=== PATIENT | male | born 1955 | race Caucasian/White ===

== ENCOUNTER → 2017-07-12 | Outpatient (CLI) | payer BC ==
--- NOTE | 2017-07-12 12:03 | EST ---
EXERCISE STRESS DATE OF SERVICE: 07/12/2017 AGE: 62 SEX: Male HT: 68 WT: 208 PROTOCOL: Kwame STAGE: II DURATION OF EXERCISE: 6 minutes HEART RATE REST: 109 BLOOD PRESSURE REST: 130/97 MAXIMUM HEART RATE ACHIEVED: 156 MAXIMUM BLOOD PRESSURE: 205/96 85% MPHR: 136 100% MPHR: 160 METS: 7.3 INDICATIONS: Chest pain. CLINICAL INFORMATION: STRESS DATA: Pretesting physical examination showed a heart rate of 109, pressure is 130/97 mmHg. Baseline EKG showed sinus mechanism. The patient exercised on the treadmill according to Kwame protocol for a total of 6 minutes and achieved 7.3 METs. Max heart rate was 156, which is about 97% of maximum predicted heart rate. Maximum blood pressure was 205/96 mmHg. Clinically the patient did not have any symptoms of chest pain or discomfort and the EKG did not show any significant ST or T-wave abnormalities consistent with ischemia. CONCLUSION: 1. Good exercise capacity. 2. Normal EKG in response to exercise. 3. Normal stress test for the patient. MMODL / IJN: [id number] /
== END | disposition home or self-care (01) ==
LOC: RADNMMAIN 10:20
PROVIDERS: ATTEND Family Medicine
DX: I10 Essential (primary) hypertension (principal)
CPT/HCPCS: 93017

== ENCOUNTER → 2023-04-23 | Outpatient (CLI) | payer BC ==
--- NOTE | 2023-04-24 11:15 | MR ---
EXAMINATION TYPE: MR cervical spine wo/w con DATE OF EXAM: 04/23/2023 6:19 PM CLINICAL INDICATION:Male, 68 years old with history of M62.522; PHH, Multifocal weakness both C5/6 an d C7/T1, COMPARISON: None. TECHNIQUE: Multi planar, multi sequence imaging was performed utilizing: T1-weighted, T2-weighted, an d turbo inversion recovery imaging of the cervical spine. IV Contrast: 8 cc Gadavist (none if empty) FINDINGS: Alignment: The cervical vertebral bodies have preserved heights. Alignment is within normal limits gi chang patient positioning. Bones: Scattered Modic endplate changes with osteophytes and disc space narrowing. Multilevel degener ative disc disease is noted and most pronounced at the C5-C7 vertebral levels. No abnormal postcontra st enhancement. Cord: The spinal cord is unremarkable with regards to their signal intensity and morphology. No abnor mal postcontrast enhancement. Discs: Multilevel disc desiccation is present. C2-C3: No significant disc pathology. The spinal canal is patent. No neural foraminal stenosis. C3-C4: No significant disc pathology. The spinal canal is patent. Bilateral facet and uncovertebral joint arthropathy are present with mild bilateral neural foraminal stenosis. C4-C5: A disc osteophyte complex is present which minimally narrows the ventral subarachnoid space. Bilateral facet and uncovertebral joint arthropathy are present with mild to moderate bilateral neur al foraminal stenosis. C5-C6: No significant disc pathology. The spinal canal is patent. Bilateral facet and uncovertebral joint arthropathy are present with moderate to severe left and moderate right neural foraminal stenos is. C6-C7: A disc osteophyte complex is present which minimally narrows the ventral subarachnoid space. Bilateral facet and uncovertebral joint arthropathy are present with mild bilateral neural foraminal stenosis. C7-T1: No significant disc pathology. The spinal canal is patent. Bilateral facet and uncovertebral joint arthropathy are present with mild bilateral neural foraminal stenosis. Other: Mild paranasal sinus disease. IMPRESSION: 1. No evidence for disc herniation or significant spinal canal stenosis. No abnormal postcontrast enh ancement. 2. Mild disc degeneration with associated osteoarthritic changes with neural foraminal stenosis worse at C5-C6.
--- NOTE | 2023-05-01 18:20 | MR ---
EXAMINATION TYPE: MR brachial plexus LT wo con DATE OF EXAM: 04/23/2023 COMPARISON: None HISTORY: Evaluate for mass, weakness in both arms, inflammatory Standard multiplanar, multisequence MRI departmental protocol Multiplanar, multisequence images of the left brachial plexus were acquired without contrast. FINDINGS: Spinal cord: Visualized spinal cord is normal in caliber and signal intensity Brachial plexus: Roots: Normal Trunks: Normal Cords: Normal Branches: Normal Muscles/tendons: Small amount of nonspecific edema within the supraspinatus, infraspinatus, and subsc apularis muscle bellies. Bones: Thoracic outlet and cervicothoracic junction are normal. No cervical rib. The C7 transverse p rocesses are normal. Bone marrow signal is normal. Vasculature: No vascular anatomic variant or abnormality. Other: Normal IMPRESSION: 1. Normal brachial plexus. No osseous or vascular abnormality at the thoracic outlet or cervicothorac ic junction. 2. Nonspecific intramuscular edema in the rotator cuff musculature. Correlate with symptoms and physi pili exam. Consider MRI of the left shoulder.
== END | disposition home or self-care (01) ==
LOC: RADMRIMAIN 16:37
PROVIDERS: ATTEND Psychiatry & Neurology Neurology
DX: M62.522 Muscle wasting and atrophy, not elsewhere classified, left upper arm (principal); M50.322 Other cervical disc degeneration at C5-C6 level; M47.812 Spondylosis without myelopathy or radiculopathy, cervical region; M99.71 Connective tissue and disc stenosis of intervertebral foramina of cervical region; R60.0 Localized edema
CPT/HCPCS: 71550; 72156; A9585

== ENCOUNTER → 2023-08-27 | Outpatient (CLI) | payer BC ==
--- NOTE | 2023-09-02 09:32 | MR ---
EXAMINATION TYPE: MR brain wo/w con DATE OF EXAM: 08/27/2023 6:49 PM CLINICAL INDICATION:Male, 68 years old with history of R29.898 BILATERAL ARM WEAKNESS; PHH, Bilateral arm weakness, ALS. COMPARISON: None TECHNIQUE: Multi planar, multi sequence imaging was performed through the brain including: T1, T2, In version recovery, susceptibility weighted imaging and gradient echo imaging and Diffusion weighted im aging. The patient was then given intravenous contrast and multi planar, T1 fat-saturation images wer e obtained. IV Contrast: 8 cc Gadavist FINDINGS: No evidence for an deposition within the precentral gyrus on susceptibility weighted imagin g. The cortical spinal tracts signal appears within normal limits. Mild cerebral atrophy with proportional dilation of ventricular system. Diffusion-weighted imaging s hows no evidence of restricted diffusion to suggest acute/subacute infarct. Intracranial arterial mireya w voids are maintained. Midline structures show no abnormality. Scattered foci of high T2 signal inte nsity are seen within the periventricular white matter. The susceptibility weighted images do not rev eal any evidence for micro-hemorrhage. After administration of gadolinium, no abnormal enhancement is seen. The bone marrow signal is within normal limits. Paranasal sinuses and mastoid air cells: Moderate mucosal thickening throughout the maxillary sinuses and ethmoid air cells. Visualized orbits: Bilateral aphakia. IMPRESSION: 1. No definitive evidence for last. No evidence for restricted diffusion or abnormal signal in the co rtical spinal tracts. No evidence of intracranial mass or abnormal enhancement. 2. Nonspecific white matter changes, likely related to small vessel ischemic disease.
== END | disposition home or self-care (01) ==
LOC: RADMRIMAIN 18:13
DX: G93.89 Other specified disorders of brain (principal); G12.21 Amyotrophic lateral sclerosis; R29.898 Other symptoms and signs involving the musculoskeletal system
CPT/HCPCS: 70553; A9585